=== PATIENT | male | born 1980 | race Caucasian/White ===

== ENCOUNTER 2019-04-28 17:06 | Emergency (ER) | payer OTHER ==
[~2019-04-28] VITALS: Ht 182.9 cm; Wt 97.5 kg
[2019-04-28] MEDS ORDERED: NORCO 5-325 TA1 EAC1 PO (19:46)
[2019-04-28 20:06] VITALS: BP 158/100
== END 2019-04-28 20:08 | disposition home or self-care (01) ==
LOC: M.ERS 17:06
DX: S92.345A Nondisplaced fracture of fourth metatarsal bone, left foot, initial encounter for closed fracture (principal); F17.210 Nicotine dependence, cigarettes, uncomplicated; X50.1XXA Overexertion from prolonged static or awkward postures, initial encounter; Y93.89 Activity, other specified; Y92.89 Other specified places as the place of occurrence of the external cause; Y99.8 Other external cause status